=== PATIENT | male | born 1960 | race Caucasian/White ===

== ENCOUNTER 2017-08-26 17:19 | Emergency (ER) | payer OTHER ==
--- NOTE | 2017-08-26 18:25 | CPEKG ---
Heart Rate: 56 RR Interval: 1071 P-R Interval: 152 QRSD Interval: 104 QT Interval: 420 QTC Interval: 406 P [place]: 83 QRS [place]: 108 T Wave [place]: 12 EKG Severity - OTHERWISE NORMAL ECG - EKG Impression: SINUS RHYTHM EKG Impression: RIGHT AXIS DEVIATION Electronically Signed By: Areli Starks 26-Aug-2017 23:08:17
--- NOTE | 2017-08-26 18:32 | EDPHY ---
H & P Stated Complaint: chest pain today and 2 days ago while excercising. Also co of a NG Time Seen by Provider: 08/26/17 18:01 HPI/ROS: CHIEF COMPLAINT: Chest pain HISTORY OF PRESENT ILLNESS: 57-year-old male presents with chest pain. 2 days ago he was exercising vigorously in a spin class when he developed substernal chest discomfort. He continued exercising, but backed off on the exertion level. The discomfort lasted 4-5 min and then spontaneously resolved. The this morning at 6:00 a.m., he was exercising in the same spin class, developed recurrent chest pain, lasting 4-5 minutes again. No associated symptoms. No other episodes of chest pain. He had a NG today, which is unusual for him. Currently asymptomatic. Cardiac risk factors positive for hyperlipidemia and family history (father CABG in 50's). Nonsmoker; no hypertension, no diabetes. REVIEW OF SYSTEMS: complete 10 point ROS negative except at noted in the HPI - Medical/Surgical History Hx Asthma: No Hx Chronic Respiratory Disease: No Hx Diabetes: No Hx Cardiac Disease: No Hx Renal Disease: No Hx Cirrhosis: No Hx Alcoholism: No Hx HIV/AIDS: No Hx Splenectomy or Spleen Trauma: No Other PMH: denies - Social History Smoking Status: Former smoker Constitutional: Initial Vital Signs Temperature (C) 36.3 C 08/26/17 17:22 Heart Rate 66 08/26/17 17:22 Respiratory Rate 16 08/26/17 17:22 Blood Pressure 122/86 H 08/26/17 17:22 O2 Sat (%) 97 08/26/17 17:22 O2 Delivery Mode Room Air Allergies/Adverse Reactions: No Known Allergies Allergy (Verified 08/26/17 17:21) Home Medications: Medication Instructions Recorded Metoprolol Tartrate 12.5 mg PO BID #20 tablet 08/26/17 Medical Decision Making - Diagnostics EKG Interpretation: EKG interpreted by me reveals normal sinus rhythm, rate 56, right axis deviation , no ST or T segment changes. Imaging Results: Imaging Impressions Chest X-Ray 08/26/17 18:10 Impression: No acute abnormality. ED Course/Re-evaluation: This patient presents after 2 episodes of exertional chest discomfort. EKG reveals no evidence of ischemia or dysrhythmia. Chest x-ray is unremarkable. Troponin is normal. Chest pain was 12hrs ago; with a normal troponin, I can safely exclude ACS. Concern for unstable angina. I consulted Dr. Justin Turner; will see the patient in the morning or admit the pt if pt agrees to admission. Options discussed with the patient of discharge home versus admission for nuclear stress test in the morning. The patient is a competent decision maker and clearly understands the risks and benefits of admission versus discharge home. He greatly prefers to go home and declines admission. He will take metoprolol and aspirin. He will return immediately for recurrent chest pain or any concerns. No exercise until he is cleared by the dehydration unit operator. Differential Diagnosis: Differential diagnosis includes though it is not limited to pneumonia, pneumothorax, pulmonary embolism, aortic dissection, pericarditis, acute coronary syndrome. - Data Points Laboratory Results: Laboratory Results 08/26/17 18:25 08/26/17 18:25 08/26/17 08/26/17 18:25 18:25 WBC 6.23 10^3/uL 10^3/uL (3.80-9.50) RBC 4.46 10^6/uL 10^6/uL (4.40-6.38) Hgb 14.1 g/dL g/dL (13.7-17.5) Hct 40.4 % % (40.0-51.0) MCV 90.6 fL fL (81.5-99.8) MCH 31.6 pg pg (27.9-34.1) MCHC 34.9 g/dL g/dL (32.4-36.7) RDW 12.1 % % (11.5-15.2) Plt Count 145 10^3/uL L 10^3/uL (150-400) MPV 9.9 fL fL (8.7-11.7) Neut % (Auto) 59.3 % % (39.3-74.2) Lymph % (Auto) 20.7 % % (15.0-45.0) [place] % (Auto) 13.0 % % (4.5-13.0) Eos % (Auto) 5.8 % % (0.6-7.6) Baso % (Auto) 1.0 % % (0.3-1.7) Nucleat RBC Rel Count 0.0 % % (0.0-0.2) Absolute Neuts (auto) 3.70 10^3/uL 10^3/uL (1.70-6.50) Absolute Lymphs (auto) 1.29 10^3/uL 10^3/uL (1.00-3.00) Absolute Monos (auto) 0.81 10^3/uL H 10^3/uL (0.30-0.80) Absolute Eos (auto) 0.36 10^3/uL 10^3/uL (0.03-0.40) Absolute Basos (auto) 0.06 10^3/uL 10^3/uL (0.02-0.10) Absolute Nucleated RBC 0.00 10^3/uL 10^3/uL (0-0.01) Immature Gran % 0.2 % % (0.0-1.1) Immature Gran # 0.01 10^3/uL 10^3/uL (0.00-0.10) Sodium 137 mEq/L mEq/L (135-145) Potassium 3.8 mEq/L mEq/L (3.5-5.2) Chloride 99 mEq/L mEq/L (97-110) Carbon Dioxide 24 mEq/l mEq/l (22-31) Anion Gap 14 mEq/L mEq/L (8-16) BUN 16 mg/dL mg/dL (7-23) Creatinine 0.8 mg/dL mg/dL (0.7-1.3) Estimated GFR > 60 Glucose 80 mg/dL mg/dL (70-100) Calcium 9.4 mg/dL mg/dL (8.5-10.4) Troponin I < 0.012 ng/mL ng/mL (0.000-0.034) NT-Pro-B Natriuret Pep 65 pg/mL pg/mL (0-125) Medications Given: Discontinued Medications Aspirin (Aspirin) 324 mg PO EDNOW ONE Stop: 08/26/17 20:12 Last Admin: 08/26/17 20:19 Dose: 324 mg Metoprolol Tartrate (Lopressor) 12.5 mg PO EDNOW ONE Stop: 08/26/17 20:12 Last Admin: 08/26/17 20:20 Dose: 12.5 mg Departure - Departure Disposition: Home, Routine, Self-Care Clinical Impression: Chest pain Qualifiers: Chest pain type: precordial pain Qualified Code(s): R07.2 - Precordial pain Condition: Good Instructions: Chest Pain (ED) Additional Instructions: Take an aspirin daily. Call tomorrow morning to make an appointment with Dr. Turner or one of the other cardiologists. Return immediately for recurrent chest pain or any concerns. Do not exercise until your cleared by the dehydration unit operator. Referrals: Dionicio Ramos MD [Primary Care Provider] - As per Instructions Justin Turner MD [Medical Doctor] - As per Instructions (Call in the morning at 9:00 a.m. to make an appointment. Tell the office staff that I spoke with Dr. Turner.) Prescriptions: Metoprolol Tartrate 12.5 mg PO BID #20 tablet
[2017-08-26 18:38] LABS: PLATELET COUNT 145 10^3/uL (150-400)
[2017-08-26] MEDS ORDERED: ASPIRIN 81 MG CHEWABLE TAB PO ONE (20:11)
[2017-08-26] MEDS ORDERED: METOPROLOL TARTRATE 25 MG TAB PO ONE (20:11)
[2017-08-26 20:38] VITALS: BP 133/93
== END 2017-08-26 20:38 | disposition home or self-care (01) ==
DX: R07.2 Precordial pain (principal); Z87.891 Personal history of nicotine dependence